=== PATIENT | female | born 1990 | race Caucasian/White ===

== ENCOUNTER 2022-02-04 01:46 | Emergency (ER) | payer OTHER ==
[~2022-02-04] VITALS: Ht 172.7 cm; Wt 65.8 kg
--- NOTE | 2022-02-04 02:30 | NUR ---
DR. LAW QURESHI AT PT'S BEDSIDE
[2022-02-04 02:31] VITALS: BP 134/70
[2022-02-04] MEDS ORDERED: AMOX-430 PO (02:43)
[2022-02-04] MEDS ORDERED: KETO10TA2 PO (02:43)
[2022-02-04] MEDS ORDERED: TRAM-351 PO (02:43)
[2022-02-04] MEDS ORDERED: TRIA80OI TP (02:43)
[2022-02-04] MEDS ORDERED: KETOROLAC TROMETHAMINE INJ 30 MG/ML VIAL ONE (02:48)
[2022-02-04] MEDS ORDERED: KETOROLAC TROMETHAMINE INJ 30 MG/ML VIAL IM ONE (03:00)
== END 2022-02-04 02:54 | disposition home or self-care (01) ==
LOC: ER 01:46
DX: K02.9 Dental caries, unspecified (principal); Z88.8 Allergy status to other drugs, medicaments and biological substances; Z60.2 Problems related to living alone; Z79.899 Other long term (current) drug therapy
CPT/HCPCS: 99283; 96372; J1885